=== PATIENT | male | born 1950 | race Caucasian/White ===

== ENCOUNTER → 2016-08-17 | Outpatient (CLI) | payer MEDICARE, OTHER | END | disposition home or self-care (01) | LOC: GMAB 11:18 | PROVIDERS: ATTEND Family Medicine | DX: Z12.5 Encounter for screening for malignant neoplasm of prostate (principal); R53.82 Chronic fatigue, unspecified | CPT/HCPCS: 84403; 84443; G0103 ==

== ENCOUNTER 2016-11-23 05:46 | Day surgery (SDC) | payer MEDICARE, OTHER ==
[2016-11-23] MEDS ORDERED: LACTATED RINGERS 1,000 ML ONE (06:15)
[2016-11-23 09:01] VITALS: O2SAT 96
--- NOTE | 2016-11-23 09:51 | OP ---
DATE OF PROCEDURE: 11/23/16 PREPROCEDURE DIAGNOSIS: 1. Colon cancer screening. POSTPROCEDURE DIAGNOSIS: 1. Normal colon cancer screening. PROCEDURE: 1. Colonoscopy to the cecum. SURGEON: Cole Hurley MD. ANESTHESIA: Monitored anesthesia care. FINDINGS: With the patient under adequate sedation, digital exam showed normal anal canal with no rectal masses and normal sized prostate. Moderate internal hemorrhoids identified. The sigmoid colon showed no clinically significant diverticulosis. There may be a few scattered diverticular openings only. The sigmoid colon was otherwise unremarkable. The descending colon was normal. Both flexures were normal. The transverse colon, ascending colon, and cecum were reached. Ileocecal valve was visualized. The appendix opening was identified. The ileocecal valve was well seen. Colon preparation was adequate. The colon can be examined to good advantage. The entire colon was examined. No new findings were identified on scope withdrawal. The patient tolerated the procedure well. Total scope withdrawal time was 6 minutes. FINAL IMPRESSION: 1. Unremarkable colonoscopy to the cecum. RECOMMENDATION: Screening colonoscopy in 10 years. #[id number] cc: MD Cole Dozier MD [facility]
[2016-11-23 09:54] VITALS: TEMP 97
[2016-11-23 10:32] VITALS: BP 108/70
[2016-11-23] MEDS ORDERED: PROPOFOL 200 MG/20 ML VIAL IV ONE (12:00)
== END 2016-11-23 10:15 | disposition home or self-care (01) ==
LOC: AMB 05:46
PROVIDERS: ATTEND Internal Medicine Gastroenterology
DX: Z12.11 Encounter for screening for malignant neoplasm of colon (principal); K64.8 Other hemorrhoids
CPT/HCPCS: 00810; G0121; J3490; J7120

== ENCOUNTER → 2018-06-08 | Outpatient (CLI) | payer MEDICARE, OTHER | LOC: GMAE 10:41 | PROVIDERS: ATTEND Family Medicine | DX: Z12.5 Encounter for screening for malignant neoplasm of prostate (principal); Z79.899 Other long term (current) drug therapy | CPT/HCPCS: 84443; G0103 ==

== ENCOUNTER → 2018-06-11 | Outpatient (CLI) | payer MEDICARE, OTHER ==
--- NOTE | 2018-06-12 11:23 | US ---
EXAM DESCRIPTION: Aorta CLINICAL HISTORY: 68 years Male, ENCOUNTER FOR SCREENING FOR OTHER DISORDER COMPARISON: None. FINDINGS: Proximal aorta measures 2.1 cm at the level of the celiac origin. The mid abdominal aorta measures 2.1 cm in diameter and the more distal abdominal aorta above the bifurcation measures 1.8 cm. Common iliac arteries measure 1 cm in diameter each and appear normal. No evidence of abdominal aortic aneurysm. No color Doppler images are included. No retroperitoneal mass or adenopathy. IMPRESSION: Negative for evidence of abdominal aortic aneurysm. Electronically signed by: Jesus Merida MD 06/12/2018 11:22 AM [facility]
== END ==
LOC: US 16:41
PROVIDERS: ATTEND Family Medicine
DX: Z13.89 Encounter for screening for other disorder (principal)

== ENCOUNTER → 2019-03-14 | Outpatient (CLI) | payer MEDICARE, OTHER ==
--- NOTE | 2019-03-14 14:11 | MRI ---
EXAM DESCRIPTION: Lumbar Spine w/o Contrast : Magnetic Resonance Imaging. CLINICAL HISTORY: LOW BACK PAIN COMPARISON: None. TECHNIQUE: L5-S1: Disc desiccation and minimal disc space loss posterior. Posterior midline bulge. Bilateral mild hypertrophic facet arthrosis and flavum ligament thickening. Mild/moderate spondylosis changes bilaterally. FINDINGS: L5-S1: The disc is well visualized on axial T2 series 501, image 3. Disc desiccation and minimal disc space loss posterior. Posterior midline bulge. Bilateral mild hypertrophic facet arthrosis and flavum ligament thickening. Mild/moderate spondylosis changes bilaterally, with prominent lateral-bilateral endplate spurs. Mild bilateral foraminal narrowing. L4-L5: Disc desiccation with disc space maintained. Grade 1 anterolisthesis 5 mm. Disc material is protruding superiorly and inferiorly, and left of midline, more superiorly 6 cm in the posterior direction and 9 mm above the disc space. AP canal diameter just above the disc space to the left of midline is 6.5 mm. Bilateral moderate hypertrophic facet arthrosis and thickening of the ligaments resulting in bilateral effacement of the subarticular recesses with AP canal diameter 7.5 mm below the disc space. Moderate bilateral foraminal narrowing. L3-L4: Disc desiccation and minimal disc space loss. Anterior disc bulging and spurs. Posterior midline and left lateral endplate reactive changes with disc bulging and moderate bilateral foraminal narrowing. 2 mm grade 1 retrolisthesis. Bilateral hypertrophic facet arthrosis and ligament thickening. AP canal diameter 11 mm. L2-L3: Disc desiccation with disc space maintained. Anterior disc bulging and endplate ridging. Grade 1 retrolisthesis 3.5 mm. Tiny posterior midline disc bulge. Minimal narrowing of the left subarticular recess. Bilateral hypertrophic facet arthrosis and ligament thickening. AP canal diameter 11 mm. Mild left foraminal narrowing and right foramen patent. L1-L2: Disc desiccation anterior bulging and annular fissure spondylosis and endplate ridging. Hypertrophic facet arthrosis and thickening of the ligaments posteriorly. Posterior midline mild disc bulge with hyperintense T2 annular fissure. AP canal diameter 11 millimeters. Bilateral mild foraminal narrowing. T12-L1: Disc desiccation anterior bulging and anterolateral spurs larger on the right. No posterior bulging. Minimal hypertrophy of the facet joints. Bilateral foramina and canal patent. Conus terminates at this level. Disc desiccation T11-T12 and posterior bulge impressing on the cord with borderline mild canal stenosis. Bilateral foramina are patent. Circumscribed hyperintense T1 and T2 hemangioma superior L1 endplate. Smaller hemangioma in the superior left lateral L2 endplate.. No scoliosis with upper lumbar kyphosis. Paravertebral soft tissues muscle atrophy. 2.7 cm cystic structure medial to the inferior pole of the left kidney.. Distal cord normal signal and caliber. Inhomogeneous marrow signal in the remaining vertebral bodies and the posterior elements. Nonspecific findings. Vertebral bodies are not compressed at any level. IMPRESSION: 1. Multilevel hypertrophic facet arthrosis and flavum ligament hypertrophy, multilevel disc desiccation and bulging, and multilevel spondylosis as well as spondylolisthesis. 2. L4-5 disc protrusion and extrusion superior more than inferior and midline and left of midline. Abutting the descending left L5 nerve and impressing on the left thecal sac with severe left paracentral canal stenosis. Grade 1 anterolisthesis. Moderate bilateral foraminal narrowing. Bilateral subarticular recess narrowing with possible compromise of the descending L5 nerve roots. 3. Grade 1 retrolisthesis L3-L4. Moderate canal narrowing and bilateral moderate foraminal narrowing. 4. Grade 1 retrolisthesis and moderate canal narrowing. Minimal narrowing of the left subarticular recess. Mild left foraminal narrowing. 5. T11-T12 disc bulge impressing on the distal cord but no cord edema. Borderline central canal stenosis. 6. Probable cyst medial cortex inferior pole left kidney. Electronically signed by: Dinh Monroy MD 03/14/2019 2:10 PM CDT
== END ==
LOC: MRI 07:00
PROVIDERS: ATTEND Family Medicine
DX: M47.896 Other spondylosis, lumbar region (principal); M51.36 Other intervertebral disc degeneration, lumbar region; M51.26 Other intervertebral disc displacement, lumbar region; M43.16 Spondylolisthesis, lumbar region

== ENCOUNTER → 2019-12-16 | Outpatient (CLI) | payer MEDICARE, OTHER ==
--- NOTE | 2019-12-17 11:08 | CT ---
EXAM DESCRIPTION: Abdomen/Pelvis w/wo Contrast: Computed Tomography. CLINICAL HISTORY: HEMATURIA. Possible gallstones and renal calculi on abdominal x-ray. COMPARISON: Ultrasound abdominal aorta June 2018. Abdominal radiograph December 15. TECHNIQUE: Spiral-axial scans at 5 x 5 mm intervals through the abdomen and pelvis before and after 75 mL Optiray 320 nonionic IV contrast. No oral contrast. Coronal and sagittal 2.0 mm reconstructions, before and after IV contrast. No Delayed helical-axial scans No adverse reactions. Total Exam DLP 1920 mGy - cm. This exam was performed according to our departmental CT dose-optimization program which includes automated exposure control, adjustment of the mA and/or kV according to patient size and/or use of iterative reconstruction technique; to reduce radiation dose to as low as reasonably achievable (ALARA). FINDINGS: Lung bases and pleura: Bibasilar pleural-parenchymal scarring also in the inferior lingula. No acute process. Liver, Stomach, Spleen, Adrenal Glands: Entire liver was not visualized on the post-IV contrast scan due to patient movement after noncontrast scan. Included liver with no focal abnormalities. Stomach mildly distended by food. Solid organs are negative. Pancreas, Gallbladder, Ducts: Multiple radiodense gallstones near the gallbladder neck and upper gallbladder. No wall thickening or inflammatory changes. Duct and pancreas are negative. Kidneys and Ureters: Minimal hydronephrosis in the left kidney. No echogenic stones or perirenal fluid. Right kidney normal. Post-IV contrast. Bilateral ureters minimally distended due to mass effect from the enlarged prostate gland. No radiodense stones or hydroureter in the ureters. Mesentery: No free air or free fluid. Aorta: Unremarkable. Small Bowel: Negative. Terminal Ileum/Cecum: Normal caliber. Appendix not seen. No inflammatory changes. Colon: Moderate distention of the distal rectosigmoid by fecal matter. No complications. Mild to moderate redundancy of the sigmoid colon. Pelvic Organs: Significant mass effect on the base of the urinary bladder from the prostate gland. The gland measures 6.7 x 6.5 x 4.3 cm. Urinary bladder wall thickening with no radiodense stones and no perivesical fatty stranding. No free fluid in the anterior peritoneal reflection. Spine and Bony Pelvis: Hypertrophic changes on the greater trochanters of the femurs, iliac crests. Hypertrophic superior lateral acetabula with no joint space narrowing. Spondylosis at multiple levels of the lumbar spine and included lower segments of the thoracic spine. Bilateral significant foraminal narrowing at L4-L5. Abdominal Wall/Back Soft Tissues: Unremarkable. IMPRESSION: 1. Mild hydronephrosis of the left kidney but no radiodense stones in the kidneys, ureters, or urinary bladder. Normal caliber of the bilateral ureters, except distal. Please see below. Right kidney is unremarkable. 2. Bladder wall thickening with markedly enlarged prostate gland and significant mass effect on the base of the bladder. The gland is impressing on the bilateral UVJs with minimal distention of the distal bilateral ureters. No free fluid in the pelvis. 3. Moderate constipation distal sigmoid and rectum with distention. No colonic obstruction. 4. Cholelithiasis of the gallbladder. No inflammatory changes around the gallbladder. Common bile duct normal caliber. Consider follow-up abdominal ultrasound to include gallbladder and bilateral kidneys. 5. Spondylosis and hypertrophic changes in the pelvic bone, femurs, and acetabula. Electronically signed by: Dinh Monroy MD 12/17/2019 11:06 AM CDT
== END ==
LOC: LAB.O 15:24
PROVIDERS: ATTEND Family Medicine
DX: N13.30 Unspecified hydronephrosis (principal); N40.0 Benign prostatic hyperplasia without lower urinary tract symptoms; N32.9 Bladder disorder, unspecified; K59.00 Constipation, unspecified; K80.20 Calculus of gallbladder without cholecystitis without obstruction; M47.9 Spondylosis, unspecified

== ENCOUNTER → 2020-08-05 | Outpatient (CLI) | payer MEDICARE, OTHER | LOC: GMAE 11:44 | PROVIDERS: ATTEND Family Medicine | DX: Z12.5 Encounter for screening for malignant neoplasm of prostate (principal); Z79.899 Other long term (current) drug therapy | CPT/HCPCS: 84443; G0103 ==